=== PATIENT | male | born 1960 | race Two or more races ===

== ENCOUNTER 2017-08-03 11:15 | Inpatient (IN) | payer OTHER ==
[~2017-08-03] VITALS: Ht 175.3 cm; Wt 73.9 kg
[2017-08-03] MEDS ORDERED: GABAPENT PO (13:24)
[2017-08-03] MEDS ORDERED: COZAAR50 MG PO (13:24)
[2017-08-03] MEDS ORDERED: DURAGESIC1 EAC1 TD (13:25)
[2017-08-03] MEDS ORDERED: CLONAZEPAM1 MG PO (13:26)
[2017-08-03] MEDS ORDERED: SYNTHROID137 MCG PO (13:26)
[2017-08-03] MEDS ORDERED: ATIVAN1 M1 PO (13:27)
[2017-08-12] MEDS ORDERED: GABAPENTIN800 MG PO (12:27)
[2017-08-12] MEDS ORDERED: DOCUSATE SODIU100 MG PO (12:27)
[2017-08-12] MEDS ORDERED: CLONAZEPAM1 MG PO (12:29)
[2017-08-12] MEDS ORDERED: AMOX-CLAV 875-1 EACH PO ×2 (12:29→12:33)
[2017-08-12] MEDS ORDERED: PERCOCET 5-3251 EACH PO (12:29)
[2017-08-12] MEDS ORDERED: NEURONTIN800 MG PO (12:33)
[2017-08-12] MEDS ORDERED: COLACE100 MG PO (12:33)
== END 2017-08-12 15:26 | DRG 460 ==
LOC: PED 08-11 05:50 → O/R 08-11 05:50 → SURG 08-11 10:00 → PED 08-11 13:29
PROVIDERS: Orthopaedic Surgery Orthopaedic Surgery of the Spine
PROC: 0SG30AJ Fusion of Lumbosacral Joint with Interbody Fusion Device, Posterior Approach, Anterior Column, Open Approach (ICD-10-PCS; 2017-08-11)
PROC: 0ST40ZZ Resection of Lumbosacral Disc, Open Approach (ICD-10-PCS; 2017-08-11)
PROC: 07DS3ZZ Extraction of Vertebral Bone Marrow, Percutaneous Approach (ICD-10-PCS; 2017-08-11)
PROC: 00NY0ZZ Release Lumbar Spinal Cord, Open Approach (ICD-10-PCS; principal; 2017-08-11 10:00)
DX: M96.0 Pseudarthrosis after fusion or arthrodesis (principal); Y83.8 Other surgical procedures as the cause of abnormal reaction of the patient, or of later complication, without mention of misadventure at the time of the procedure; Y92.098 Other place in other non-institutional residence as the place of occurrence of the external cause; M96.1 Postlaminectomy syndrome, not elsewhere classified; M51.17 Intervertebral disc disorders with radiculopathy, lumbosacral region; I10 Essential (primary) hypertension; E03.8 Other specified hypothyroidism

== ENCOUNTER → 2020-02-09 08:00 | Outpatient (CLI) | payer OTHER ==
[~2020-02-09] VITALS: Ht 175.3 cm; Wt 87.5 kg
[~2020-02-09 08:00] MED LIST: AMOX-CLAV 875-1 EACH PO; ATIVAN1 M1 PO; BENICAR40 MG PO; CLONAZEPAM1 MG PO; COLACE100 MG PO; COZAAR50 MG PO; DOCUSATE SODIU100 MG PO; DURAGESIC1 EAC1 TD; GABAPENT PO; GABAPENTIN800 M1 PO; GABAPENTIN800 MG PO; NEURONTIN800 MG PO; PERCOCET 5-3251 EACH PO; SYNTHROID125 MCG PO; SYNTHROID137 MCG PO
== END | disposition home or self-care (01) ==
LOC: LAB 08:00 → EKG 08:00 → ADM 13:45 → EDSTATUS 13:45 → SURH 02-15 13:45 → EDSTATUS 02-15 13:45
PROVIDERS: ATTEND Orthopaedic Surgery Orthopaedic Surgery of the Spine
DX: M48.062 Spinal stenosis, lumbar region with neurogenic claudication (principal); Z20.828 Contact with and (suspected) exposure to other viral communicable diseases; M41.56 Other secondary scoliosis, lumbar region; Z01.810 Encounter for preprocedural cardiovascular examination

== ENCOUNTER 2020-04-05 11:00 | Inpatient (IN) | payer OTHER ==
[~2020-04-05] VITALS: Ht 175.3 cm; Wt 88.0 kg
[2020-04-12] MEDS ORDERED: PERCOCET 5-3251 EACH PO (12:09)
[2020-04-12] MEDS ORDERED: COLACE100 MG PO (12:10)
[2020-04-12] MEDS ORDERED: CLONAZEPAM1 MG PO (12:10)
== END 2020-04-13 14:55 | disposition home or self-care (01) | DRG 473 ==
LOC: SURG 04-12 05:46 → O/R 04-12 05:46 → ICU-2 04-12 11:00 → SURG 04-12 11:00
PROVIDERS: ADMIT Orthopaedic Surgery Orthopaedic Surgery of the Spine; ATTEND Orthopaedic Surgery Orthopaedic Surgery of the Spine
PROC: 0RG10A0 Fusion of Cervical Vertebral Joint with Interbody Fusion Device, Anterior Approach, Anterior Column, Open Approach (ICD-10-PCS; 2020-04-12)
PROC: 3E0U0GB Introduction of Recombinant Bone Morphogenetic Protein into Joints, Open Approach (ICD-10-PCS; 2020-04-12)
PROC: 07DS0ZZ Extraction of Vertebral Bone Marrow, Open Approach (ICD-10-PCS; 2020-04-12)
PROC: 4A12X4Z Monitoring of Cardiac Electrical Activity, External Approach (ICD-10-PCS; 2020-04-12)
PROC: 0RB30ZZ Excision of Cervical Vertebral Disc, Open Approach (ICD-10-PCS; principal; 2020-04-12 13:00)
DX: M50.023 Cervical disc disorder at C6-C7 level with myelopathy (principal); E03.9 Hypothyroidism, unspecified; I10 Essential (primary) hypertension

== ENCOUNTER 2021-02-08 10:45 | Inpatient (IN) | payer OTHER ==
[~2021-02-08] VITALS: Ht 175.3 cm; Wt 92.5 kg
[2021-02-14] MEDS ORDERED: PERCOCET 5-3251 EACH PO (15:06)
[2021-02-14] MEDS ORDERED: MEDROLPACK PO (15:06)
[2021-02-14] MEDS ORDERED: COLACE100 MG PO (15:06)
[2021-02-14] MEDS ORDERED: DIAZEPAM5 MG PO (15:06)
[2021-02-14] MEDS ORDERED: AMOX-CLAV 875-1 EAC1 PO (15:06)
[2021-02-14] MEDS ORDERED: NEURONTIN800 MG PO (15:06)
== END 2021-02-15 15:34 | disposition home or self-care (01) | DRG 455 ==
LOC: PED 02-14 05:35 → O/R 02-14 05:35 → SURH 02-14 10:45 → PED 02-14 20:15
PROVIDERS: ADMIT Orthopaedic Surgery Orthopaedic Surgery of the Spine; ATTEND Orthopaedic Surgery Orthopaedic Surgery of the Spine
PROC: 0SG10J1 Fusion of 2 or more Lumbar Vertebral Joints with Synthetic Substitute, Posterior Approach, Posterior Column, Open Approach (ICD-10-PCS; 2021-02-14)
PROC: 07DR3ZZ Extraction of Iliac Bone Marrow, Percutaneous Approach (ICD-10-PCS; 2021-02-14)
PROC: 0SG10A0 Fusion of 2 or more Lumbar Vertebral Joints with Interbody Fusion Device, Anterior Approach, Anterior Column, Open Approach (ICD-10-PCS; principal; 2021-02-14 15:30)
DX: M41.56 Other secondary scoliosis, lumbar region (principal); M48.062 Spinal stenosis, lumbar region with neurogenic claudication

== ENCOUNTER 2022-03-07 10:30 | Inpatient (IN) | payer OTHER ==
[~2022-03-07] VITALS: Ht 175.3 cm; Wt 93.0 kg
[~2022-03-07 10:30] MED LIST changes: +AMOX-CLAV 875-1 EAC1 PO; +DIAZEPAM5 MG PO; +MEDROLPACK PO
[2022-03-07] MEDS ORDERED: LIPITOR40 M1 PO (10:52)
[2022-03-07] MEDS ORDERED: PERCOC PO (10:53)
[2022-03-07] MEDS ORDERED: ADULT LOW DOSE81 M1 PO (10:53)
[2022-03-11] MEDS ORDERED: FAMOTIDINE40 MG (11:39)
[2022-03-11] MEDS ORDERED: PERCOCET 7.5-31 EACH (11:43)
[2022-03-11] MEDS ORDERED: COLACE100 MG PO (14:09)
[2022-03-11] MEDS ORDERED: MEDROLPACK PO (14:10)
[2022-03-11] MEDS ORDERED: AMOX-CLAV 875-1 EACH PO (14:10)
[2022-03-11] MEDS ORDERED: PERCOCET 5-3251 EACH PO (14:10)
[2022-03-11] MEDS ORDERED: NEURONTIN800 MG PO (14:10)
== END 2022-03-13 10:12 | disposition home or self-care (01) | DRG 454 ==
LOC: PED 03-11 07:30 → O/R 03-11 07:30 → SURH 03-11 10:30 → PED 03-11 16:47 → SURH 03-11 18:15 → PED 03-13 10:12
PROVIDERS: ADMIT Orthopaedic Surgery Orthopaedic Surgery of the Spine; ATTEND Orthopaedic Surgery Orthopaedic Surgery of the Spine
PROC: 0SG1071 Fusion of 2 or more Lumbar Vertebral Joints with Autologous Tissue Substitute, Posterior Approach, Posterior Column, Open Approach (ICD-10-PCS; 2022-03-11)
PROC: 0SP00AZ Removal of Interbody Fusion Device from Lumbar Vertebral Joint, Open Approach (ICD-10-PCS; 2022-03-11)
PROC: 0ST20ZZ Resection of Lumbar Vertebral Disc, Open Approach (ICD-10-PCS; 2022-03-11)
PROC: XRGC0R7 Fusion of 2 or more Lumbar Vertebral Joints using Custom-Made Anatomically Designed Interbody Fusion Device, Open Approach, New Technology Group 7 (ICD-10-PCS; principal; 2022-03-11 18:15)
DX: M48.062 Spinal stenosis, lumbar region with neurogenic claudication (principal); T85.698A Other mechanical complication of other specified internal prosthetic devices, implants and grafts, initial encounter; M96.0 Pseudarthrosis after fusion or arthrodesis; M41.56 Other secondary scoliosis, lumbar region; I10 Essential (primary) hypertension; E03.9 Hypothyroidism, unspecified; Z96.698 Presence of other orthopedic joint implants; Z95.5 Presence of coronary angioplasty implant and graft